=== PATIENT | female | born 1985 | race African-American/Black ===

== ENCOUNTER 2020-12-16 07:52 | Emergency (ER) | payer MEDICAID, SELFPAY ==
[2020-12-16 07:55] VITALS: BP 140/65; PULSE 68; RESP 16; TEMP 35.6; O2SAT 100; BMI 42.4
[2020-12-16 08:40] VITALS: BP 153/91; PULSE 58; RESP 18; O2SAT 99
--- NOTE | 2020-12-16 09:45 | ED.GENADULT ---
HPI - General Adult General Chief complaint: General Medical Stated complaint: HIGH BLOOD PRESSURE Time Seen by Provider: 12/16/20 09:00 Source: patient Mode of arrival: ambulatory Limitations: no limitations History of Present Illness HPI narrative: 35-year-old female who presents emergency department for evaluation elevated blood pressure. The patient is a G4, P4. She is 2 months . Her last was complicated by preeclampsia and her baby was delivered by at 35 weeks and 5 days. There were no complications from the . Patient states that she was experiencing headaches and slight abdominal pain prior to the . The patient states that she was discharged from the hospital but needed to be readmitted for elevated blood pressures. She states that while she was hospitalized her systolic blood pressures for 190-200 and her diastolic blood pressures for greater than 100. The patient was treated with labetalol 200 mg 3 times a day and nifedipine ER 30 mg daily. The patient has been following up with her OBGYN to manage her blood pressure. She states that about 3 weeks ago she ran out of the nifedipine and contacted the office however the prescription was not refilled and she was not told to stop this medication. The patient states that over the past 1 and half weeks her blood pressures have been elevated. She states that her highest blood pressure is 166/110. She took her blood pressure today and was elevated therefore she came to emergency department. She denies any symptoms. She denies headache, chest pain, shortness of breath, nausea, vomiting, abdominal pain, change in her urinary frequency. She has not noticed any lower extremity swelling. Related Data Previous Rx's Medication Instructions Recorded nifedipine 30 mg PO DAILY 30 Days #30 tab 12/16/20 Allergies Allergy/AdvReac Type Severity Reaction Status Date / Time No Known Allergies Allergy Verified 12/16/20 09:43 Review of Systems Review of Systems: Yes all other systems are reviewed and are negative [facility] Past Medical History [facility] Narrative: Past medical history: Preeclampsia, -related hypertension. Social history: Patient recently moved to this area from the [facility]. She denies tobacco, alcohol and drug use. Medical History (Updated 12/16/20 @ 12:01 by Amadeo Thomason MD) Preeclampsia Social History Social History Smoked in Last 30 Days: No Use of substances other than those prescribed or required for medical reasons: No Advance Directives: Yes Advance Directives Information Provided: Yes Advance Directives on File: No Patient : No Physical Exam Vital Signs: Vital Signs: Last Vital Signs Temp 96.1 F L 12/16/20 07:55 Pulse 54 12/16/20 10:06 Resp 18 12/16/20 08:40 BP 139/90 H 12/16/20 11:05 Pulse Ox 99 12/16/20 08:40 Body Mass Index 42.4 Const: General: cooperative and healthy appearing Orientation/consciousness: oriented to person and oriented to place Limitations: no limitations HENMT: Head: Yes normal to inspection, Yes normocephalic and Yes atraumatic Ears: external ears normal General nose exam: Normal external nose present Face and sinus: Yes normal facial exam Mouth: Normal oral and palatal mucosa present Throat: Yes posterior oropharynx normal Eyes: Periorbital: periorbital findings normal Eyelids: Yes eyelids normal Conjunctivae: conjunctivae normal Sclerae: sclerae normal Corneas: corneas normal Pupils: Equal, round and reactive pupils present Direct Ophthalmoscopy: normal light reflex Neck: Neck: Yes full ROM, Yes no lymphadenopathy, Yes no meningeal signs, Yes trachea midline and Yes supple Chest: Chest palpation & inspection: normal inspection of the chest and normal palpation of entire chest wall Resp: Effort & Inspection: normal respiratory effort and able to speak in complete sentences Auscultation: clear to auscultation bilaterally Cardio: Rate: regular rate Rhythm: regular rhythm Heart sounds: S1 normal heart sound present, S2 normal heart sound present and no murmurs GI: Inspection: Yes normal to inspection Palpation (GI): Soft to palpation, nontender, no guarding, not rigid and No hepatosplenomegaly present : General: Yes no CVA tenderness Back/Spine/Pelvis: Back: no CVA tenderness Cervical Spine: normal cervical lordosis Thoracic/Lumbar Spine: thoracic and lumbar spine normal to inspection Skin: Lesions: no lesions Rashes: no rashes Wounds: no wounds Neuro: General: oriented to person, oriented to place and no meningeal signs Cranial nerves: Yes CN's II-XII intact bilaterally and Yes Equal, round and reactive pupils present Cognition (Neuro): normal cognition Motor exam (neuro): 5/5 motor strength present throughout Extrem: General: Yes normal to inspection and Yes full ROM Psych: Appearance: well kempt Mental Status: mental status grossly normal Speech and movement: Normal speech and movement present Affect: normal affect Attitude: cooperative Thought process: Normal thought process present Thought content: Normal thought content present Course Course Course Narrative: 35-year-old female who presents emergency department for evaluation of hypertension x1 half weeks. Patient is being treated for -related hypertension/preeclampsia. The patient is 2 months . She has no symptoms. She did have elevated blood pressures here in the emergency department. I did order CBC, CMP, urinalysis. The patient was given nifedipine ER 30 mg orally for her elevated blood pressure. 1156: Patient's laboratory evaluation was normal with normal platelet count, normal LFTs. Patient's urine revealed no protein in the urine. Given these findings I doubt that the patient has preeclampsia and I believe that her elevated blood pressure is more consistent with -related hypertension. I did discuss this with the patient. The patient was advised to continue taking her labetalol and I will give her prescription for nifedipine ER 30 mg daily. I did advise the patient to take her blood pressure 3 times a week and record these blood pressures to discuss with her PCP. Medical Decision Making Lab Data Result diagrams: 12/16/20 10:16 12/16/20 10:16 Labs: Lab Results 12/16/20 12/16/20 12/16/20 Range/Units 10:16 10:16 10:16 WBC 4.9 (4.8-10.8) X10*3/uL RBC 4.58 (4.20-5.50) X10*6/uL Hgb 11.8 L (12.0-16.0) g/dl Hct 37.7 (37-47) % MCV 82.3 (80-98) fL MCH 25.8 L (27.0-33.0) pg MCHC 31.3 (31.0-35.0) g/dl RDW 16.3 H (11.0-16.0) % Plt Count 213 (160-400) X10*3/uL MPV 9.6 (9.4-12.3) fL Immature Gran % (Auto) 0.2 (0.0-0.4) % Neut % (Auto) 64.0 (45-73) % Lymph % (Auto) 29.1 (20-40) % [place] % (Auto) 4.7 (2-11) % Eos % (Auto) 1.8 (0-4) % Baso % (Auto) 0.2 (0-2) % Lymph # (Auto) 1.4 (1.2-4.9) X10*3/uL [place] # (Auto) 0.2 (0.1-1.2) X10*3/uL Eos # (Auto) 0.1 (0.0-0.4) X10*3/uL Baso # (Auto) 0.0 (0.0-0.2) X10*3/uL Abs Immat Gran (auto) 0.01 (0.00-0.03) X10*3/uL Absolute Neuts (auto) 3.1 (2.0-8.3) X10*3/uL Absolute Nucleated RBC 0.000 (0.0-0.012) X10*3/uL Nucleated RBC % (auto) 0.0 (0.0-0.2) /100WBC Sodium 141 (135-145) mmol/L Potassium 4.3 (3.3-5.1) mmol/L Chloride 106 (96-108) mmol/L Carbon Dioxide 27 (22-29) mmol/L Anion Gap 12 (12-20) BUN 8 L (9-16) mg/dL Creatinine 0.81 (0.5-1.4) mg/dL Estim Creat Clear Calc 99.8 Estimated GFR > 60 Random Glucose 81 (60-115) mg/dL Calcium 9.2 (8.4-10.2) mg/dL Total Bilirubin 0.4 (0.0-1.0) mg/dL AST 29 (5-31) U/L ALT 41 H (0-31) U/L Alkaline Phosphatase 102 (39-117) U/L Total Protein 7.4 (6.5-8.0) g/dL Albumin 4.1 (3.5-5.0) g/dL Urine Color STRAW Urine Appearance CLEAR Urine pH 7.0 (5.0-8.0) Ur Specific [place] 1.010 (1.005-1.025) Urine Protein TRACE (NEG-TRACE) MG/DL Urine Glucose (UA) NEG (NEG) MG/DL Urine Ketones NEG (NEG) MG/DL Urine Blood NEG (NEG) Urine Nitrite NEG (NEG) Ur Leukocyte Esterase NEG (NEG) Discharge Plan Discharge Clinical Impression: Hypertension Additional Instructions: The reason to check your blood pressure at home is to give your doctor an idea of what your blood pressure does when you are not in the doctor's office. Take your blood pressure in the morning, Mondays , Wednesdays and Fridays and then write down these readings to discuss them with your doctor at your next visit. If you doctor decides that your blood pressure readings are high than your doctor will start you on medications. Continue taking your labetalol 300 mg 3 times a day. I am restarting your nifedipine ER 30 mg once a day. It sometimes take 3-6 months to get your blood pressure under control so it is important that you stay on these medications until your primary care doctor tells you to stop them or changes them. Please return to the emergency department if you develops concerning symptoms such as severe headache, chest pain, shortness of breath, difficulty walking secondary to shortness of breath, numbness, weakness, difficulty talking. Take Tylenol (acetaminophen) 500 mg pills, 2 pills every 4 to 6 hours as needed for pain. Follow-up with your doctor to discuss your blood pressure readings. Please return to the emergency department if your symptoms get worse or if you develop any new symptoms that are concerning to you. Prescriptions: New nifedipine 30 mg tablet extended release 30 mg PO DAILY 30 Days Qty: 30 RF: 0
[2020-12-16 10:06] VITALS: BP 155/96; PULSE 54
[2020-12-16] MEDS: NIFEdipine ER 30 MG TAB.ER.24 PO (10:06)
[2020-12-16 10:22] LABS: Basophils Percent Auto 0.2 % (0-2); Eosinophils Absolute Auto 0.1 X10*3/uL (0.0-0.4); Eosinophils Percent Auto 1.8 % (0-4); Hematocrit 37.7 % (37-47); Hemoglobin 11.8 g/dl (12.0-16.0); Imm Gran Abs Auto 0.01 X10*3/uL (0.00-0.03); Imm Gran Pct Auto 0.2 % (0.0-0.4); Lymphocytes Absolute Auto 1.4 X10*3/uL (1.2-4.9); Lymphocytes Percent Auto 29.1 % (20-40); MANUAL DIFF FLAG NO; Mean Corpuscular HGB Conc 31.3 g/dl (31.0-35.0); Mean Corpuscular Hemoglobin 25.8 pg (27.0-33.0); Mean Corpuscular Volume 82.3 fL (80-98); Mean Platelet Volume 9.6 fL (9.4-12.3); Monocytes Absolute Auto 0.2 X10*3/uL (0.1-1.2); Monocytes Percent Auto 4.7 % (2-11); Neutrophils Absolute Auto 3.1 X10*3/uL (2.0-8.3); Platelet Count 213 X10*3/uL (160-400); Red Blood Count 4.58 X10*6/uL (4.20-5.50); Red Cell Distribution Width 16.3 % (11.0-16.0); White Blood Count 4.9 X10*3/uL (4.8-10.8)
[2020-12-16 10:23] LABS: Glucose Urine UA NEG (NEG); Leukocyte Esterase Urine NEG (NEG); Nitrite Urine NEG (NEG); Urine Blood NEG (NEG); Urine Ketones NEG (NEG); Urine Protein TRACE MG/DL (NEG-TRACE)
[2020-12-16 10:25] LABS: Appearance Urine CLEAR; Color Urine STRAW
[2020-12-16 10:46] LABS: Alanine Aminotransferase 41 U/L (0-31); Albumin Level 4.1 g/dL (3.5-5.0); Alkaline Phosphatase 102 U/L (39-117); Anion Gap 12 (12-20); Aspartate Amino Transferase 29 U/L (5-31); Bilirubin Total 0.4 mg/dL (0.0-1.0); Blood Urea Nitrogen 8 mg/dL (9-16); Calcium 9.2 mg/dL (8.4-10.2); Carbon Dioxide 27 mmol/L (22-29); Chloride 106 mmol/L (96-108); Creatinine Clr Calc Pharmacy 99.8; Estimated Glomerular Filt Rate > 60; Glucose Random 81 mg/dL (60-115); Potassium 4.3 mmol/L (3.3-5.1); Sodium 141 mmol/L (135-145); Total Protein 7.4 g/dL (6.5-8.0)
[2020-12-16 11:05] VITALS: BP 139/90
== END 2020-12-16 12:21 | disposition home or self-care (01) ==
PROVIDERS: Emergency Provider Emergency Medicine Emergency Medical Services
DX: I10 Essential (primary) hypertension (principal)
CPT/HCPCS: 36415; 80053; 81003; 85025; 99283; 99284

== ENCOUNTER 2025-07-10 08:41 | Outpatient (AMB) | payer OTHER, SELFPAY ==
--- NOTE | 2025-07-10 08:42 | AM.OFFWIN_ITS ---
Intake Vital Signs 07/10/25 08:46 Height 4 ft 11 in Weight 260 lb BMI 52.5 BP 116/80 Blood Pressure Location Lt brachial Position Sitting Pulse 75 Pulse Source Pulse Oximeter Temp 98 F Temp Source Oral Pulse Oximetry (%) 97 Oxygen Delivery Method Room Air Intake Visit Reasons: [employer] Right side pain Intake Note: Patient presents c/o right flank pain x3 days. Patient Tobacco Use Status: Never used Tobacco Allergies No Known Allergies Allergy (Verified 07/10/25 08:48) HPI HPI Comments History of Present Illness Details History - The patient is a 40 year old female pr esenting with a chief complaint of right-sided pain and concern for a urinary tract infection. - She reports falling on her buttocks ab out a week ago. - Associated urinary symptoms include in creased frequency, a sensation of incomplete bladder emptying, and malodorous urine. - She denies burning with urination, hem aturia, cloudy urine, vaginal discharge, or vaginal itching. - Her last menstrual period was in Novem carol, and she is not . - She reports no pain with leg movement and denies any numbness or tingling down her leg. - She denies fever or chills. - She denies CP, SOB, hip pain, leg pain , saddle anesthesia, incontinence, numbness, and tingling. Physical Exam General: Cooperative, healthy appearing, comfortable, no acute distress and well developed Cardiac: Normal S1 and S2. RRR, no M/R/G noted. Respiratory: Normal respiratory effort and able to speak in complete sentences. Clear to auscultation bilaterally. No w/r/r noted. Skin: No rashes or lesions noted. GI: Normal inspection. Normal BS noted. Soft, non-tender, non-distended. No TTP of all 4 quadrants. No guarding or rebound tenderness noted. Negative CVA bilaterally. Back: FROM of the spine. No midline spinous tenderness noted. No step offs noted. No TTP of the thoracic and lumbar paraspinous tenderness noted. No SI joint tenderness noted. Negative SLR noted. Strength is 5/5 on the LE bilaterally. Patient was informed and verbally consented to the use of an ambient scribe for clinic note documentation during this visit. [facility] Medical History (Updated 12/17/20 @ 00:01 by Background Dathiago) Preeclampsia Social History Patient Tobacco Use Status: Never used Tobacco Review of Systems Const All systems reviewed & are unremarkable except as noted in HPI and below Physical Exam Vital Signs: Last Vital Signs Temp 98 F 07/10/25 08:46 Pulse 75 07/10/25 08:46 BP 116/80 07/10/25 08:46 Pulse Ox 97 07/10/25 08:46 Oxygen Delivery Method Room Air 07/10/25 08:46 BMI result Body Mass Index 52.5 Results AMB Urinalysis, Automated UA Leukoctes 0 Yeimi/uL Last Edit by Altagracia Juarez CMA on 07/10/25 09:11 UA Nitrite Negative Last Edit by Altagracia Juarez CMA on 07/10/25 09:11 UA Urobilinogen 0.2 mg/dL Last Edit by Altagracia Juarez CMA on 07/10/25 09: 11 UA Protein 0 mg/dL Last Edit by Altagracia Juarez CMA on 07/10/25 09:11 UA pH 6.0 Last Edit by Altagracia Juarez CMA on 07/10/25 09:11 UA Blood 0 Dominik/uL Last Edit by Altagracia Juarez CMA on 07/10/25 09:11 UA Specific [place] 1.025 Last Edit by Altagracia Juarez CMA on 07/10/25 09 :11 UA Ketone Negative Last Edit by Altagracia Juarez CMA on 07/10/25 09:11 UA Bilirubin 0 mg/dL Last Edit by Altagracia Juarez CMA on 07/10/25 09:11 UA Glucose 0 mg/dL Last Edit by Altagracia Juarez CMA on 07/10/25 09:11 Results Reviewed Results Reviewed: Laboratory Last Values Urine pH (Auto) 6.0 07/10/25 09:10 Specific [place] (Auto) 1.025 07/10/25 09:10 Urine Protein (Auto) 0 mg/dL 07/10/25 09:10 Glucose (UA)(Auto) 0 mg/dL 07/10/25 09:10 Urine Ketones (Auto) Negative 07/10/25 09:10 Urine Blood (Auto) 0 Dominik/uL 07/10/25 09:10 Urine Nitrite (Auto) Negative 07/10/25 09:10 Urine Bilirubin (Auto) 0 mg/dL 07/10/25 09:10 Urine Urobilinogen (Auto) 0.2 mg/dL 07/10/25 09:10 Leukocyte Esterase (Auto) 0 Yeimi/uL 07/10/25 09:10 Assessment & Plan Assessment & Plan (1) Right-sided back pain: Code(s): M54.9 - Dorsalgia, unspecified Qualifiers: Back pain location: low back pain Chronicity: acute Sciatica presence: without sciatica Qualified Code(s): M54.50 - Low back pain, unspecified (2) Abnormal urine odor: Code(s): R82.90 - Unspecified abnormal findings in urine Plan Most likely UTI vs muscle strain UA is neg Plan - A urine sample will be sent for culture to evaluate for a urinary tract infection. - The patient was prescribed an antibiotic to start empirically due to the holiday , with instructions to discontinue it if the urine culture is negative. - For pain management, Tylenol or Motrin as needed is recommended. - A heating pad may be used for potential musculoskeletal pain from her recent fall. - The clinic will follow up with the patient by phone to provide the results of the urine culture. Orders: Orders AMB Urinalysis Automated Today Z13.9 - Encounter for screening, unspecified Urine Culture Today N39.0 - Urinary tract infection, site not specified Medications: New cefuroxime axetil 500 mg PO Q12H 10 tabs 0RF Coding Level of Care Code Est Pt Level 4 (07761) Diagnoses Acute right-sided low back pain without sciatica M54.50 Back pain location: low back pain Chronicity: acute Sciatica presence: without sciatica Abnormal urine odor R82.90
[2025-07-10 08:46] VITALS: BP 116/80; PULSE 75; TEMP 36.6; O2SAT 97; BMI 52.5
--- OUTSIDE RECORDS SUMMARY | 2025-07-10 08:58 | XMS_ITS ---
Author Name [facility] Organization Unknown Care Team Organization Name Specialty Phone Email Start Date End Da te [facility] DEON JAIMES Primary Care 05/26/2022 4
--- OUTSIDE RECORDS SUMMARY | 2025-07-10 08:58 | XMS_ITS | Clinical Summary ---
Author Organization [facility] [address] [place] [address] [place] [phone] Phone Care Team Providers Care Power Plant Electrician Name Role Phone Arie Victoria MD Primary Care Provider [phone] Allergies Active Allergy Reactions Criticality Noted Date Comments Other 03/06/2021 Seasonal Allergies Medications ferrous sulfate 325 mg (65 mg iron) EC tablet Take 1 tablet (325 mg total) by mouth 1 (one) time each day with breakfast. Do not crush, chew, or split. 90 each 08/16/19 25 Active docusate sodium (Colace) 100 mg capsule Take 1 capsule (100 mg total) by mouth 1 (one) time each day if needed for constipation. 90 each 08/16/19 25 Active tirzepatide, weight loss, (Zepbound) 2.5 mg/0.5 mL injection Inject 0.5 mL (2.5 mg total) under the skin every 7 (seven) days. 2 mL 04/26/20 25 Active Additional Information Patient not taking.Reported on 05/28/2025 cyanocobalamin (VITAMIN B-12) 1,000 mcg tablet Take 1 tablet (1,000 mcg total) by mouth every other day. 45 each 05/17/20 25 026 Active folic acid (FOLVITE) 1 mg tablet Take 1 tablet (1 mg total) by mouth every other day. 45 each 05/17/20 25 026 Active phentermine 15 mg capsuleIndicati ons:Class 3 severe obesity due to excess calories without serious comorbidity with body mass index (BMI) of 45.0 to 49.9 in adult ([facility] V24, [facility] V28) TAKE 1 CAPSULE (15 MG TOTAL) BY MOUTH ONCE DAILY BEFORE BREAKFAST MAX DAILY AMOUNT: 15 MG 30 capsule 06/11/20 Active terbinafine (LamISIL) 250 mg tabletIndicatio ns:Dermatophyto sis of nail TAKE 1 TABLET BY MOUTH 1 TIME EACH DAY. 30 each 2 06/13/20 25 Active terbinafine (LamISIL) 250 mg tablet Take 1 tablet (250 mg total) by mouth 1 (one) time each day. 30 tablet 09/14/19 25 025 Discontinued phentermine 15 mg capsuleIndicati ons:Class 3 severe obesity due to excess calories without serious comorbidity with body mass index (BMI) of 45.0 to 49.9 in adult ([facility] V24, [facility] V28) Take 1 capsule (15 mg total) by mouth 1 (one) time each day before breakfast. Max Daily Amount: 15 mg 30 each 04/26/20 25 025 Discontinued Active Problems Problem Noted Date Diagnosed Date Iron deficiency anemia due to chronic blood loss 10/02/2024 Prediabetes 06/01/2024 Class 3 severe obesity due t o excess calories without serious comorbidity with body mass index (BMI) of 45.0 to 49.9 in adult 05/10/2024 Fluctuating blood pressure 05/21/2021 Essential hypertension 04/01/2021 Overview (05/10/2024): Baseline P/C ratio 0.02 Last Assessment & Plan: Patient states that she had hypertensive issues with the joint of her 4 pregnancies. The symptoms of preeclampsia can resolve after placental delivery but women can sometimes have an elevated risk of developing chronic hypertension ischemic heart disease and stroke risks . Patients with preeclampsia have a 3-4 fold risk of developing hypertension due to fall risk of heart attack and stroke. affected by preeclampsia can accelerate cardiovascular disease specially further risk factors are present. The preeclampsia can cause endovascular damage which can lead to further cardiac issues or in life. At this point the patient's blood pressure is very well controlled she not orthostatic she not symptomatic we'll leave her meds in place. She has been told that the meds can transfer in breastmilk. Routine echocardiogram to assess LV systolic function and have her back in a few months to see how she is doing clinically. I think we should have a heightened concern over the possibility of developing possible cardiovascular disease down the road given the frequency that she has had preeclampsia with her pregnancies Encounters Date Type Department Care Team Description 06/22/2025 Telephone Adult Medicine [facility] [address] [place] [phone] Arie Victoria MD 06/08/2025 Telephone Bariatric Surgery [facility] [address] [phone] Flower Arrieta PA 06/05/2025 11:30 AM EST - 06/05/2025 11:59 PM EST Hospital Encounter [facility] [address] [place] [phone] Iron deficiency anemia due to chronic blood loss (Primary Dx) Discharge Disposition: Home or Self Care 06/01/2025 11:30 AM EST - 06/01/2025 11:59 PM EST Hospital Encounter [facility] [address] [place] [phone] Iron deficiency anemia due to chronic blood loss (Primary Dx) Discharge Disposition: Home or Self Care 05/28/2025 1:26 PM EST - 05/28/2025 11:59 PM EST Hospital Encounter [facility] [address] [place] [phone] Iron deficiency anemia due to chronic blood loss (Primary Dx) Discharge Disposition: Home or Self Care 05/17/2025 9:30 AM EDT Office Visit [facility] [address] [place] [phone] Nicolette Alvarez PA Iron deficiency anemia due to chronic blood loss (Primary Dx); Menorrhagia with regular cycle; Low serum vitamin B12 04/27/2025 Telephone Bariatric Surgery [facility] [address] [phone] Flower Arrieta PA 04/25/2025 Telephone Bariatric Surgery - [place] 175 [facility] [address] [place] [phone] Flower Arrieta PA 04/24/2025 2:30 PM EDT Consult Bariatric Surgery - [place] 175 [facility] [address] [place] [phone] Flower Arrieta PA Class 3 severe obesity due to excess calories without serious comorbidity with body mass index (BMI) of 45.0 to 49.9 in adult ([facility] V24, [facility] V28) (Primary Dx) from Last 3 Months Immunizations Immunization Administration Dates Next Due Influenza trivalent, with pr eservative (Fluzone; Afluria) 6mo and older 04/29/2015 Tdap Tetanus diptheria acell ular pertussis (Boostrix; Adacel) 7yo and older 07/26/2024 Surgical History Surgery Date Site/Laterality Comments SECTION PROCEDURE: HISTORICAL DELIVERY; COMMENT: x3 WISDOM TOOTH EXTRACTION PROCEDURE: HISTORICAL WISDOM TEETH EXTRACTION; COMMENT: X 4 OTHER SURGICAL HISTORY 09/2023 Bilateral PROCEDURE: MT SALPINGECTOMY COMPLETE/PARTIAL UNI/BI SPX Medical History Medical History Date Comments Essential (primary) hypertension DX:Essential (primary) hypertension Severe pre-eclampsia DX:Severe p re-eclampsia Anemia DX:Anemia Family History Medical History Relation Name Comments No Known Problems Brother No Known Problems Daughter 1 x 2 health y daughters No Known Problems Daughter 2 No Known Problems Father No Known Problems Maternal Grandfather No Known Problems Maternal Grandmother Hypertension Mother Thyroid disease Mother No Known Problems Paternal Grandfather No Known Problems Paternal Grandmother No Known Problems Sister 1 x2 healthy sisters No Known Problems Sister 2 No Known Problems Son Breast cancer Neg Hx Colon cancer Neg Hx Ovarian cancer Neg Hx Prostate cancer Neg Hx Relation Name Status Comments Brother Alive Daughter 1 Alive Daughter 2 Alive Father Maternal Grandfather Maternal Grandmother Alive Mother Alive Paternal Grandfather Paternal Grandmother Sister 1 Alive Sister 2 Alive Son Alive Social History Tobacco Use Types Packs/Day Years Used Date Smoking Tobacco: Never Smokeless Tobacco: Never Tobacco Cessation:Counseling Given: Not Answered Alcohol Use Standard Drinks/Week Comments Not Currently 0 (1 standard drink = 0.6 oz pur e alcohol) Housing Instability Answer Date Recorde d Are you worried that in the next 2 months you may not have stable housing? No 07/26/2024 Food Access & Nutrition Answer Date Rec orded Do you have access to a vari ety of food including fruits and vegetables? No 07/26/2024 Health Literacy Answer Date Recorded How often do you need to hav e someone help you when you read instructions, pamphlets, or other written material from your doctor or pharmacy? Never 07/26/2024 Caregiver: How often do you need to have someone help you when you read instructions, pamphlets, or other written material from your doctor or pharmacy? Not on file 07/26/2024 Financial Risk Answer Date Recorded How hard is it for you to pa y for the very basics like food, housing, medical care, and air conditioning / heating? Not very hard 07/26/2024 Transportation Answer Date Recorded Has the lack of transportati on kept you from meetings, work, or from getting things needed for daily living? No Has the lack of transportati on kept you from medical appointments or from getting medications? No 07/26/2024 Social Isolation Answer Date Recorded How often do you feel lonely or isolated from th ose around you? Never 07/26/2024 Food Risk Answer Date Recorded Within the past 12 months we worried whether our food would run out before we got money to buy more. Never true 07/26/2024 Within the past 12 months th e food we bought just didn't last and we didn't have money to get more. Never true 07/26/2024 Dependent Care Answer Date Recorded Do you need help finding or paying for care for your loved ones. For example, child care associate or elderly care for an older adult? No 07/26/2024 Education Answer Date Recorded Do you think completing more education or training, like finishing a GED, going to college, or learning a trade, would be helpful for you? N/A 07/26/2024 Employment and Income Answer Date Recor ded During the last four weeks, have you been actively looking for work? No 07/26/2024 Living Situation Answer Date Recorded What is your living situation? 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 on file Not on file Not on file Last Filed Vital Signs Vital Sign Reading Time Taken Comments Blood Pressure 121/83 06/05/2025 12:40 PM EST Pulse 65 06/05/2025 12:40 PM EST Temperature 36.6 C (97.8 F) 06/05/2025 12:40 PM EST Respiratory Rate 18 06/05/2025 12:40 PM EST Oxygen Saturation 100% 06/05/2025 12:40 PM EST Inhaled Oxygen Concentration - - Weight 107 kg (236 lb) 05/17/2025 9:30 AM EDT Height 152.4 cm (5') 04/24/2025 2:35 PM EDT Body Mass Index 46.09 04/24/2025 2:35 PM EDT Plan of Treatment Upcoming Encounters Date Type Department Care Team (Late st Contact Info) Description 07/25/2025 2:00 PM EST Consult Bariatric Surgery [address] [phone] Rayna Bearden, RD [address] [phone] 08/02/2025 9:00 AM EST Office Visit Adult [address] [phone] Arie Victoria MD [address] [place] [address] 08/16/2025 9:00 AM EST Office Visit Bariatric Surgery [address] [phone] Flower Arrieta PA [address] [place] [phone] 11/15/2025 9:30 AM EDT Office Visit [facility] [address] [place] [phone] Nicolette Alvarez PA [address] [place] [address] Health Maintenance Due Date Last Done Comments Drug Screen 1987 Non-Opioid Controlled Substance Agreement 1987 COVID-19 Vaccine (#1) 1992 Hepatitis B Vaccines (1 of 3 - 19+ 3-dose series) 2006 HPV Vaccines (1 - 3-dose SCDM series) 2014 HIV Screening 06/27/2022 Social Influencers of Health Screening 07/26/2025 07/26/2024 Hypertension/CHF/CAD Annual BMP Blood Test 09/14/2025 09/14/2024, 07/26/2024, 06/01/2024, Additional history exists Cervical Cancer Screening: HPV 11/21/2028 11/22/2023 Cholesterol Screening (Lipid Panel) 07/26/2029 07/26/2024, 10/05/2022 DTaP,Tdap,and Td Vaccines (2 - Td or Tdap) 07/26/2034 07/26/2024 RSV Immunization Adult Patients (1 - 1-dose 75+ series) 2062 Influenza Vaccine Discontinued 04/29/2015 Hepatitis C Screening Completed 05/20/2023 Depression Screening Completed 07/26/2024 HIB Vaccines Aged Out No longer eligi ble based on patient's age to complete this topic Hepatitis A Vaccines Aged Out No long er eligible based on patient's age to complete this topic IPV Vaccines Aged Out No longer eligi ble based on patient's age to complete this topic MMR Vaccines Aged Out No longer eligi ble based on patient's age to complete this topic Meningococcal ACWY Vaccine Aged Out N o longer eligible based on patient's age to complete this topic Meningococcal B Vaccine Aged Out No l onger eligible based on patient's age to complete this topic Pneumococcal Vaccine: Pediatrics (0 to 5 Years) and At-Risk Patients (6 to 49 Years) Aged Out No longer eligible based on patient's age to complete this topic RSV Immunization Patients Under 20 months Aged Out No longer eligible based on patient's age to complete this topic Varicella Vaccines Aged Out No longer eligible based on patient's age to complete this topic Procedures Procedure Name Priority Date/Time Associated Diagnosis Comments CBC WITH AUTO DIFFERENTIAL Routine 05/15/2025 11:03 AM EDT Low serum vitamin B12 Iron deficiency anemia due to chronic blood loss VITAMIN B12 AND FOLATE Routine 11:03 AM EDT Low serum vitamin B12 IRON AND TIBC Routine 05/15/2025 11:03 AM EDT Iron deficiency anemia due to chronic blood loss FERRITIN Routine 05/15/2025 11:03 AM EDT Iron deficiency anemia due to chronic blood loss CBC AND DIFFERENTIAL Routine 05/15/2025 11:03 AM EDT Low serum vitamin B12 Iron deficiency anemia due to chronic blood loss COMPREHENSIVE METABOLIC PANEL Routine 09/14/2024 9:17 AM EST Dermatophytosis of nail LIPID PANEL WITH REFLEX TO DIRECT LDL Routine 07/26/2024 9:35 AM EST Routine history and physical examination of adult Screening for lipid disorders HPV Routine 11/22/2023 HEPATITIS C SCREENING Routine 05/20/2023 from Last 3 Months or Most Recently Relevant to Health Maintenance Results * Vitamin B12 and folate (05/15/2025 11:03 AM EDT) Pathologist [facility] Vitamin B-12 507 250 - 900 pcg/mL LAB CHEMISTRY METHOD 05/15/2025 2:43 PM EDT [facility] Folate 8.3 2.8 - 17.0 ng/ml LAB CHEMISTRY METHOD 05/15/2025 2:43 PM EDT [facility] Blood Venous blood specimen / Unknown Venipuncture / Unknown 05/15/2025 11:03 AM EDT 05/15/2025 11:03 AM EDT us Nicolette DESAI LAB BLOOD ORDERABLES Final Re sult [facility] [address] [place] [address], * (ABNORMAL) CBC auto differential (05/15/2025 11:03 AM EDT) WBC 5.3 4.8 - 10.8 K/mcL LAB HEMETOLOGY METHOD 05/15/2025 12:17 PM EDT [facility] RBC 4.30 3.80 - 4.80 M/mcL LAB HEMETOLOGY METHOD 05/15/2025 12:17 PM EDT [facility] Hemoglobin 10.7(L) 11.5 - 16.0 g/dL LAB HEMETOLOGY METHOD 05/15/2025 12:17 PM EDT [facility] Hematocrit 34.8(L) 35.0 - 47.0 % LAB HEMETOLOGY METHOD 05/15/2025 12:17 PM EDT [facility] MCV 81.9 79.0 - 98.0 FL LAB HEMETOLOGY METHOD 05/15/2025 12:17 PM EDT [facility] MCH 25.2(L) 27.0 - 32.0 pcg LAB HEMETOLOGY METHOD 05/15/2025 12:17 PM EDT [facility] MCHC 30.7(L) 32.0 - 37.0 g/dL LAB HEMETOLOGY METHOD 05/15/2025 12:17 PM EDT [facility] RDW 13.7 11.0 - 15.0 % LAB HEMETOLOGY METHOD 05/15/2025 12:17 PM EDT [facility] Platelets 268 130 - 400 K/mcL LAB HEMETOLOGY METHOD 05/15/2025 12:17 PM EDT [facility] MPV 10.4 7.0 - 11.0 FL LAB HEMETOLOGY METHOD 05/15/2025 12:17 PM [facility] NRBC 0.0 <1.0 % LAB HEMETOLOGY METHOD 05/15/2025 12:17 PM [facility] NRBC Absolute 0.00 <0.10 K/mcL LAB HEMETOLOGY METHOD 05/15/2025 12:17 PM [facility] Neutrophils Relative 60.2 % LAB HEMETOLOGY METHOD 05/15/2025 12:17 PM [facility] Lymphocytes Relative 29.4 % LAB HEMETOLOGY METHOD 05/15/2025 12:17 PM [facility] Monocytes Relative 5.5 % LAB HEMETOLOGY METHOD 05/15/2025 12:17 PM [facility] Eosinophils Relative 4.3 % LAB HEMETOLOGY METHOD 05/15/2025 12:17 PM [facility] Basophils Relative 0.4 % LAB HEMETOLOGY METHOD 05/15/2025 12:17 PM [facility] Immature Granulocytes Relative 0.2 % LAB HEMETOLOGY METHOD 05/15/2025 12:17 PM [facility] Neutrophils Absolute 3.19 1.50 - 7.00 K/mcL LAB HEMETOLOGY METHOD 05/15/2025 12:17 PM [facility] Lymphocytes Absolute 1.56 1.00 - 5.00 K/mcL LAB HEMETOLOGY METHOD 05/15/2025 12:17 PM [facility] Monocytes Absolute 0.29 0.20 - 1.00 K/mcL LAB HEMETOLOGY METHOD 05/15/2025 12:17 PM [facility] Eosinophils Absolute 0.23 0.00 - 0.50 K/mcL LAB HEMETOLOGY METHOD 05/15/2025 12:17 PM [facility] Basophils Absolute 0.02 0.00 - 0.20 K/[facility] LAB HEMETOLOGY METHOD 05/15/2025 12:17 PM EDT [facility] Immature Granulocytes Absolute 0.01 0.00 - 0.03 K/[facility] LAB HEMETOLOGY METHOD 05/15/2025 12:17 PM EDT [facility] Blood Venous blood specimen / Unknown Venipuncture / Unknown 05/15/2025 11:03 AM EDT 05/15/2025 11:03 AM EDT us Nicolette DESAI LAB BLOOD ORDERABLES Final Re sult Performing Organization Address City/[facility]/ZIP Co de Phone Number [facility] [address] [place] [address], [place] [phone] * (ABNORMAL) Iron and TIBC (05/15/2025 11:03 AM EDT) Iron 37(L) 40 - 150 mcg/dL LAB CHEMISTRY METHOD 05/15/2025 2:43 PM EDT [facility] TIBC 375 250 - 450 mcg/dL LAB CHEMISTRY METHOD 05/15/2025 2:43 PM EDT [facility] Iron Saturation 10(L) 15 - 50 % LAB CHEMISTRY METHOD 05/15/2025 2:43 PM EDT [facility] Blood Venous blood specimen / Unknown Venipuncture / Unknown 05/15/2025 11:03 AM EDT 05/15/2025 11:03 AM EDT Nicolette DESAI LAB BLOOD ORDERABLES Final Re sult Performing Organization Address City/[facility]/ZIP Co de Phone Number [facility] [address] [place] [address], [place] [phone] * Ferritin (05/15/2025 11:03 AM EDT) Ferritin 18 8 - 252 ng/mL LAB CHEMISTRY METHOD 05/15/2025 2:43 PM EDT [facility] Blood Venous blood specimen / Unknown Venipuncture / Unknown 05/15/2025 11:03 AM EDT 05/15/2025 11:03 AM EDT us Nicolette DESAI LAB BLOOD ORDERABLES Final Re sult [facility] [address] [place] [address], [place] [phone] * Comprehensive metabolic panel (09/14/2024 9:17 AM EST) Sodium 139 133 - 145 mmol/L LAB CHEMISTRY METHOD 09/14/2024 11:46 AM [facility] Potassium 4.0 3.5 - 5.5 mmol/L LAB CHEMISTRY METHOD 09/14/2024 11:46 AM [facility] Chloride 106 96 - 110 mmol/L LAB CHEMISTRY METHOD 09/14/2024 11:46 AM [facility] CO2 25 21 - 32 mmol/L LAB CHEMISTRY METHOD 09/14/2024 11:46 AM [facility] Anion Gap 8 3 - 11 LAB CHEMISTRY METHOD 09/14/2024 11:46 AM [facility] Glucose 86 70 - 100 mg/dL LAB CHEMISTRY METHOD 09/14/2024 11:46 AM [facility] BUN 10 5 - 25 mg/dL LAB CHEMISTRY METHOD 09/14/2024 11:46 AM [facility] Creatinine 0.79 0.50 - 1.10 mg/dL LAB CHEMISTRY METHOD 09/14/2024 11:46 AM [facility] eGFR 99 >=60 mL/min/1. 73m2 LAB CHEMISTRY METHOD 09/14/2024 11:46 AM [facility] Comment:Calculation based on the Chronic Kidney Disease Epidemiology Collaboration (CKD-EPI) equation refit without adjustment for race. BUN/Creatinine Ratio 12.7 LAB CHEMISTRY METHOD 09/14/2024 11:46 AM [facility] Calcium 9.0 8.5 - 10.5 mg/dL LAB CHEMISTRY METHOD 09/14/2024 11:46 AM [facility] AST (SGOT) 17 10 - 42 unit/L LAB CHEMISTRY METHOD 09/14/2024 11:46 AM [facility] ALT (SGPT) 19 10 - 60 unit/L LAB CHEMISTRY METHOD 09/14/2024 11:46 AM [facility] Alkaline Phosphatase 111 42 - 121 unit/L LAB CHEMISTRY METHOD 09/14/2024 11:46 AM [facility] Total Protein 8.0 6.0 - 8.0 g/dL LAB CHEMISTRY METHOD 09/14/2024 11:46 AM [facility] Albumin 3.7 3.2 - 5.0 g/dL LAB CHEMISTRY METHOD 09/14/2024 11:46 AM [facility] Total Bilirubin 0.3 0.0 - 1.4 mg/dL LAB CHEMISTRY METHOD 09/14/2024 11:46 AM [facility] Blood Venous blood specimen / Unknown Venipuncture / Unknown 09/14/2024 9:17 AM EST 09/14/2024 10:27 AM EST Edwar Ogden DP LAB BLOOD ORDERABLES Final Result [facility] [address] [place] [address], * Lipid panel with reflex to direct LDL (07/26/2024 9:35 AM EST) Cholesterol 169 0 - 200 mg/dL LAB CHEMISTRY METHOD 07/26/2024 1:07 PM EST [facility] Triglycerides 82 0 - 150 mg/dL LAB CHEMISTRY METHOD 07/26/2024 1:07 PM EST [facility] HDL 61 >=40 mg/dL LAB CHEMISTRY METHOD 07/26/2024 1:07 PM [facility] LDL Calculated 92 0 - 100 mg/dL LAB CHEMISTRY METHOD 07/26/2024 1:07 PM [facility] VLDL Cholesterol Ricky 16.4 mg/dL LAB CHEMISTRY METHOD 07/26/2024 1:07 PM [facility] Non HDL Chol. (LDL+VLDL) 108 <145 mg/dL LAB CHEMISTRY METHOD 07/26/2024 1:07 PM [facility] Chol/HDL Ratio 2.8 0.0 - 4.4 LAB CHEMISTRY METHOD 07/26/2024 1:07 PM [facility] Blood Venous blood specimen / Unknown Venipuncture / Unknown 07/26/2024 9:35 AM EST 07/26/2024 9:35 AM EST Andre DESAI LAB BLOOD ORDERABLES Fi nal Result [facility] [address] [place] [address], * Cervical Cancer Screening: HPV (11/22/2023) Pathologist [facility] Cervical Cancer Screening: HPV Negative, Abstracted Historical Provider HEALTH MAINTENANCE Final Result * Hepatitis C Screening (05/20/2023) Pathologist [facility] Hepatitis C Screening Abstracted Historical Provider HEALTH MAINTENANCE Final Result from Last 3 Months or Most Recently Relevant to Health Maintenance Insurance [employer] Care Teams Power Plant Electrician Relationship Specialty Start Date End Date Arie Victoria MD [address] [place] [phone] PCP - General Internal Medicine 05/31/24
== END 2025-07-10 09:23 | disposition home or self-care (01) ==
PROVIDERS: Visit Provider Physician Assistant Medical
DX: M54.50 Low back pain, unspecified (principal); R82.90 Unspecified abnormal findings in urine; Z13.9 Encounter for screening, unspecified

== ENCOUNTER 2025-07-10 08:41 | Outpatient (REF) | payer OTHER, SELFPAY | END 2025-07-10 08:42 | LOC: HO.LAB 08:41 | DX: R82.90 Unspecified abnormal findings in urine (principal); M54.50 Low back pain, unspecified; N39.0 Urinary tract infection, site not specified | CPT/HCPCS: 87086 ==